=== PATIENT | female | born 2000 ===

== ENCOUNTER 2024-10-22 15:52 | Outpatient (REF) | payer OTHER, SELFPAY | END 2024-10-22 15:53 | disposition home or self-care (01) | LOC: LBN 15:52 | PROVIDERS: Visit Provider Obstetrics & Gynecology | DX: Z12.4 Encounter for screening for malignant neoplasm of cervix (principal); N93.9 Abnormal uterine and vaginal bleeding, unspecified; R10.2 Pelvic and perineal pain | CPT/HCPCS: 88142; 87480; 87510; 87660 ==